=== PATIENT | female | born 1930 | race Caucasian/White ===

== ENCOUNTER 2017-01-14 19:00 | Inpatient (IN) | payer OTHER ==
[~2017-01-14] VITALS: Ht 149.8 cm; Wt 80.7 kg
--- NOTE | ~2017-01-14 | PR ---
[place], [place] PROGRESS NOTE NAME: HENRIK SYED [facility] #: [id number] UNIT #: [id number] ROOM: 310 DOCTOR: Randy RAMIREZ,MARLENE BIRTHDATE: [birth year] DOS: 01/19/2017 PSYCHIATRIC PROGRESS NOTE SUBJECTIVE: The patient seen and spoke with the staff. Per staff, the patient was screaming all night, was combative and irritable and angry, hard to redirect. The patient was in the day area in a Tg chair. She said that she is doing "good." She was not able to recall the event that happened last night, said that she was surprised to know that she was screaming. She said that she slept well and her appetite was good. She was not in any distress. She did not express any concern also. MENTAL STATUS EXAMINATION: The patient was pleasant and cooperative, described her mood as "okay." Affect, mood congruent. Thought processes with confabulation. She denied auditory or visual hallucination. No delusion or paranoia noted. She denied any suicidal ideation, intent or plan. She also denied any homicidal ideation, intent or plan. ASSESSMENT: 1. Brief psychotic disorder. 2. Rule out major depression with psychotic feature. 3. Alzheimer dementia with behavioral disturbances. PLAN: 1. Continue current medication and care. Probably need to give some time for the medication to have its full effect. 2. Continue redirection. 3. Leos milieu. MARLENE RAMIREZ MD CM:ELVER [id number] Randy RAMIREZ 01/19/17 1647 interface
--- NOTE | ~2017-01-14 | DS ---
[place], [place] DISCHARGE SUMMARY NAME: HENRIK SYED [facility] #: [id number] UNIT #: [id number] ROOM: 310 DOCTOR: HAKAN OROZCO MD BIRTHDATE: [birth year] DOS: 01/21/2017 CHIEF COMPLAINT: The patient was somnolent at initial eval and was unable to respond. HISTORY OF PRESENT ILLNESS: This is an 86-year-old white female known to me from her stay at [facility] in [place], [place]. The patient has become increasingly more agitated and aggressive there. She has been both verbally and physically aggressive toward staff and resistive to care. She has also been yelling out nonstop to the point of being extremely disruptive to the entire gracia milieu. Attempts to adjust her medications have been unsuccessful and she continues to spiral out of control, representing a significant risk of harm to self and others. She is admitted now to the U to rule out organic factors and to stabilize on medication with the ultimate plan to return to [facility] when stable. PAST MEDICAL HISTORY: Remarkable for Alzheimer dementia, gait instability, major depression, osteoarthritis and vertigo. SUMMARY OF HOSPITAL COURSE: The patient was admitted to the unit where her Aricept was discontinued and Exelon patch 4.6 mg daily was started. Her Namenda dose was increased to 10 mg b.i.d. rapidly and she was started on Depakote 250 mg twice daily and 500 mg at bedtime. The Exelon dose was rapidly titrated upwards from the 4.6 initiation dose to its target dose of 13.3 mg daily without issue. The patient did improve gradually with this, but continued to exhibit significant delusions which seemed to be at the root of her agitation and aggression. For this reason, Risperdal 0.5 mg twice daily was started. This did seem to impact positively on her symptoms and she improved dramatically with the addition of the Risperdal. She became much calmer and redirectable. She even ambulated with assistance in the hallway and was able to engage in normal conversation. Her yelling episodes decreased in both frequency and intensity and she was able to engage in meaningful conversation more readily. She had improved significantly by 01/21/2017 to return back to [place]. MENTAL STATUS AT DISCHARGE: The patient is alert and oriented to person, possibly place, although it is doubtful not to time. Mood does seem to be more euthymic. Affect is much more appropriate. There was no agitation or aggression. There was no hypomania or cyndee. There was no overt hostility noted. The patient did still have some persistent delusion, but was redirectable. Short term memory remains exceedingly poor. FINAL DIAGNOSES: Major depression, recurrent with psychotic features, also Alzheimer dementia. PLAN: All of her prescriptions have been E-scribe to . She will return to [facility] in [place], [place]. I will follow her there upon her return. [place], [place] DISCHARGE SUMMARY NAME: HENRIK SYED UNIT #: [id number] ROOM: 310 DOCTOR: HAKAN OROZCO MD BIRTHDATE: [birth year] HAKAN OROZCO MD CM:URBAN 1 [phone] HAKAN OROZCO MD 01/21/17 1022 interface
--- NOTE | ~2017-01-14 | PR ---
[place], [place] PROGRESS NOTE NAME: HENRIK SYED [facility] #: [id number] UNIT #: [id number] ROOM: 310 DOCTOR: HAKAN OROZCO MD BIRTHDATE: [birth year] DOS: 01/16/2017 CHIEF COMPLAINT: "Morning, how are you?" SUMMARY OF THE VISIT: The patient was interviewed as she sat in the group therapy room in a Tg chair. She had magazines in front of her that she was looking at. She engaged readily in conversation and did report that she is feeling better. Nurses report a significant improvement in her overall mood and there has been much less yelling out and she is more redirectable. MENTAL STATUS: She is alert and oriented to self. Unclear if she realizes she is in the hospital and she is certainly not oriented to time. Mood does seem to be strongly trending towards euthymia. Affect is more appropriate. There are no symptoms of hypomania or cyndee. There are no auditory or visual hallucinations. No delusions or paranoia noted. Short term memory is poor. PLAN: I will go ahead and increase her Exelon patch from 9.5 to 13.3 mg daily. Her vitamin B12 level is borderline therapeutic at 306, but given the fact that it is so close to being deficient. I will go ahead and augment with vitamin B12 1000 mcg IM today. We will engage in individual and gracia milieu activity, returning to the least restrictive environment when psychiatrically stable. HAKAN OROZCO MD CM:PNTRANS 0 06 HAKAN OROZCO MD 01/16/171805 interface
--- NOTE | ~2017-01-14 | PR ---
[place], [place] PROGRESS NOTE NAME: HENRIK SYED [facility] #: [id number] UNIT #: [id number] ROOM: 310 DOCTOR: Randy RAMIREZ,MARLENE BIRTHDATE: [birth year] DOS: 01/20/2017 PSYCHIATRIC PROGRESS NOTE SUBJECTIVE: The patient seen and spoke with the staff. Per staff, the patient started screaming last night, but was easily redirectable. She was paid attention 1:1 and later on she slept 6 hours, woke up in between, but no other behavioral problems or issues. The patient was pleasant, cooperative. She said that she is doing fine. She said that she does not like to sleep in the chair, but it is okay with her. She was not in any distress. She is medication compliant and denied any problems or issues. MENTAL STATUS EXAMINATION: The patient was pleasant and cooperative, described her mood as "okay." Affect, mood congruent. Thought process is with confabulation. She denied auditory or visual hallucination. No delusion or paranoia noted. She denied suicidal ideation, intent or plan. She also denied homicidal ideation, intent or plan. ASSESSMENT: 1. Major depressive disorder, recurrent with psychotic feature 2. Alzheimer dementia with behavioral disturbances. PLAN: 1. Continue current medication and care. 2. Continue redirection. 3. Leos milieu. MARLENE RAMIREZ MD CM:ELVER [id number] Randy RAMIREZ 01/20/17 1528 interface
--- NOTE | ~2017-01-14 | WRIGHTHP ---
[place], [place] PATIENT HISTORY AND PHYSICAL EXAM NAME: HENRIK SYED UNIT #: [id number] ROOM: 310 DOCTOR: HAKAN OROZCO MD BIRTHDATE: [birth year] DOS: 01/15/2017 CHIEF COMPLAINT: The patient was somnolent and unable to respond. HISTORY OF PRESENT ILLNESS: This is an 86-year-old white female known to me from her stay at [facility] in [facility]. The patient has become increasingly more agitated and aggressive. She has been both verbally and physically aggressive toward staff and very resistive to care. Additionally, she has been yelling out nonstop and she has been very disruptive to the entire gracia milieu. Attempts to adjust her medications have been unsuccessful and she continues to spiral out of control being a significant risk of harm to herself and others. She is admitted now to rule out organic factors to stabilize on medication, to engage in individual and gracia milieu activity with the ultimate plan to return back to [facility] when psychiatrically stable. PAST MEDICAL HISTORY: Remarkable for Alzheimer's dementia, gait instability, major depression, osteoarthritis and vertigo. MENTAL STATUS EXAMINATION: The patient is alert and oriented to self only. This morning, she was very somnolent. She did require p.r.n. intervention last evening receiving an Ativan between the hours of 11 and 12 o'clock. This morning, I attempted on multiple occasions to attempt to arouse her, she did open her eyes and moves little bit, but did not make any verbalizations. DIAGNOSES: Brief psychotic disorder, rule out major depression with psychotic features, also Alzheimer dementia. PLAN: I have already discontinued her Aricept in lieu of Exelon patch 4.6 mg daily. I will rapidly titrate this upward with the target dose of 13.3 mg daily in mind. This is already being augmented with Namenda 10 mg b.i.d. I have started her on Depakote 250 mg twice daily and 500 mg at bedtime in an effort to decrease her impulsivity and mood lability. We will attempt to engage in individual and gracia milieu activity with the ultimate plan to return back to [place] when stable. [place], [place] PATIENT HISTORY AND PHYSICAL EXAM NAME: HENRIK SYED UNIT #: [id number] ROOM: 310 DOCTOR: HAKAN OROZCO MD BIRTHDATE: [birth year] HAKAN OROZCO MD CM:PHYS:PATIENT HISTORY AND PHYSICAL EXAMINATION [id number] HAKAN OROZCO MD 01/15/17 1017 interface
--- NOTE | 2017-01-14 19:19 | NUR ---
PER DR OROZCO HE IS MEDICALLY CLEARING PATIENT
--- NOTE | 2017-01-14 20:12 | NUR ---
HENRIK SYED Sara a 86 year old F admitted via wheel chair from the ADMITTING as a voluntary admission. Arrived on unit at 2011. ALLERGIES: NKA. Vital signs are: -- . The client signed the following forms with stated understanding: Authorization For The Release of Medical Information, Clothing List, Consent to Voluntary Admission and Hospitalization, Consent and Release Forms/Receipt of Rights, Acknowledgement of Advance Directive Information, Behavioral Health Consent Form, and Informed Consent of Medications. Admitted under the services of [facility]. A search was conducted and hazardous articles were removed. Client was oriented to the unit. FRANCOIS BUSBY PATIENT DELFINO WHIPPLE TO SIGN PAPER WORK TOMARROW BUT GAVE CONSENT FOR ADMISSION TO [facility]
[2017-01-14 20:26] VITALS: BP 138/60
[2017-01-14] MEDS ORDERED: ASPIRIN ADULT L81 MG PO (21:10)
[2017-01-14] MEDS ORDERED: FIBER LAX625 MG PO (21:11)
[2017-01-14] MEDS ORDERED: VITAMIN D22000 UNIT PO (21:11)
[2017-01-14] MEDS ORDERED: ARICEPT5 M1 PO (21:12)
[2017-01-14] MEDS ORDERED: ZANTAC 150150 MG PO (21:13)
[2017-01-14] MEDS ORDERED: FISH OIL 1,2001 EACH PO (21:14)
[2017-01-14] MEDS ORDERED: NAMENDA10 MG PO (21:16)
[2017-01-14] MEDS ORDERED: VISTARIL25 MG PO ×2 (21:17→21:30)
[2017-01-14] MEDS ORDERED: COLACE100 MG PO ×2 (21:18→21:37)
[2017-01-14] MEDS ORDERED: SENNA-S TABLET1 EACH PO (21:19)
[2017-01-14] MEDS ORDERED: GEODON20 MG PO (21:21)
[2017-01-14] MEDS ORDERED: VISTARIL50 MG PO ×2 (21:22→21:33)
[2017-01-14] MEDS ORDERED: MECLIZINE HCL12.5 MG PO (21:23)
[2017-01-14] MEDS ORDERED: TYLENOL325 MG PO (21:23)
[2017-01-14] MEDS ORDERED: ALLEGRA-D 24 H1 EACH PO (21:24)
[2017-01-14] MEDS ORDERED: MUCINEX1200 M1 PO (21:27)
[2017-01-14] MEDS ORDERED: ZOFRAN ODT4 MG PO (21:28)
[2017-01-14] MEDS ORDERED: IMODIUM A-D2 M2 PO (21:29)
[2017-01-14] MEDS ORDERED: DULCOLAX10 M1 R (21:34)
[2017-01-14] MEDS ORDERED: MILK OF MA400 MG/51 PO (21:35)
[2017-01-14] MEDS ORDERED: FLEET ENEMA 13133 ML R (21:36)
[2017-01-14] MEDS ORDERED: ARTHRITIS PAIN650 M3 PO (21:38)
--- NOTE | 2017-01-14 22:03 | NUR ---
DR. EAGLE CALLED AND AWARE OF ADMISSION. PATIENT PLACED UNDER DR. TESSY AGUILERA
[2017-01-14 22:19] VITALS: BP 138/60
--- NOTE | 2017-01-14 22:29 | NUR ---
DR. CASTRO ON UNIT TO SEE PATIENT
--- NOTE | 2017-01-15 00:20 | NUR ---
PATIENT WITH ATTEMPT TO GET OUT OF WHEELCHAIR WITHOUT ASSISTANCE AND STRIKING OUT AT NURSING STAFF. MEDICATED WITH ATIVAN 1MG PO. FLUIDS PROVIDED. ATIVAN WITH EFFECTIVE RESULTS AT THIS TIME
--- NOTE | 2017-01-15 03:56 | NUR ---
24 HR chart check completed.
--- NOTE | 2017-01-15 04:53 | NUR ---
24 HR chart check completed.
--- NOTE | 2017-01-15 06:25 | NUR ---
PATIENT TOILETED AND URINE SPECIMEN COLLECTED. PATIENT INCONTINENT OF BLADDER PRIOR TO TOILETING. URINE OUTPUT OF 150ML CLOUDY YELLOW URINE WITH STRONG ODOR
--- NOTE | 2017-01-15 07:03 | NUR ---
Q 15 MINUTE SAFETY CHECKS MAINTAINED. SLEPT 3-4 HOURS INTERMITTENTLY THROUGHOUT SHIFT
[2017-01-15 07:18] LABS: BASO % 0.6 % (0.0-1.0); EOS # 0.6 10*3/uL (0.0-0.4); HEMATOCRIT 39.3 % (37.0-47.0); HEMOGLOBIN 12.8 g/dl (12.0-16.0); LYMPH # 1.7 10*3/uL (1.3-4.4); LYMPH % 25.2 % (27.0-41.0); MEAN CELL VOLUME 90.1 fl (81.0-99.0); MEAN CORPUSCULAR HGB 29.4 pg (27.0-31.0); MEAN CORPUSCULAR HGB CONC 32.6 g/dl (33.0-37.0); MEAN PLATELET VOLUME 12.6 fl (9.6-12.3); MONO # 0.7 10*3/uL (0.1-1.0); MONO % 10.2 % (3.0-9.0); NEUT # 3.8 10*3/uL (2.3-7.9); NEUT % 54.7 % (47.0-73.0); PLATELET COUNT AUTOMATED 196 10*3/uL (130-400); RED BLOOD COUNT 4.36 10*6/uL (4.10-5.10); RED CELL DISTRI WIDTH 14.1 % (0-14.5); WHITE BLOOD COUNT 6.9 10*3/uL (4.8-10.8)
[2017-01-15 07:47] LABS: ALBUMIN 2.9 gm/dl (3.1-4.5); CREATININE 1.28 mg/dL (0.55-1.02); POTASSIUM 3.9 mmol/L (3.5-5.1); TOTAL PROTEIN 7.3 gm/dL (6.4-8.2)
[2017-01-15 07:56] LABS: THYROID STIM HORMONE (HS) 2.2 uIU/ml (0.358-4.75)
[2017-01-15 08:07] LABS: BILIRUBIN NEGATIVE (NEGATIVE); BLOOD NEGATIVE (NEGATIVE); CLARITY CLOUDY (CLEAR); COLOR YELLOW (YELLOW); GLUCOSE NEGATIVE (NEGATIVE); KETONE TRACE (NEGATIVE); LEUKO ESTERASE 1+ (NEGATIVE); NITRITE NEGATIVE (NEGATIVE); PH 5.5 (5.0-9.0); UROBILINOGEN 0.2 E.U./dl (0.2-1.0)
[2017-01-15 08:10] VITALS: BP 147/68
[2017-01-15 09:10] LABS: VITAMIN D, 25-HYDROXY 41.3 ng/mL (30-100)
[2017-01-15 09:55] LABS: BACTERIA 4+; EPITHELIAL CELLS 15-20; WBC 31-40 wbc/hpf (0-5)
--- NOTE | 2017-01-15 10:21 | NUR ---
PHYSICAL THERAPY Physical Therapy Evaluation completed this date. See eval document for complete details. Will begin PT intervention to address the impairments of muscle weakness, decreased functional mobility I, and difficulty ambulating. Recommend d/c back to [facility] [place] [address] based on chart review and PT eval. Adrienne Loyd, PT
--- NOTE | 2017-01-15 10:25 | NUR ---
SCARLETT FROM [facility] CALLED IN STATING THAT THEY RECEIVED A REPORT THAT THE TRANSPORTING AMBULETTE ZIP TIED THE PT TO HER WHEELCHAIR. FACILITY REQUESTING WE EXAMINE PT WRISTS AND ANKLES FOR ANY AREAS OF CONCERN. THIS NURSE EXAMINED PT WRISTS AND ANKLES, NO REDNESS OR AREAS OF CONCERN NOTED. CALL PLACED TO FACILTY AND INFORMATION GIVEN. [facility] DIRECTOR,HARRY, NOTIFIED.
--- NOTE | 2017-01-15 11:03 | NUR ---
Exercise/Games This group will help patient learn deep breathing to calm herself and appropriate interaction with others Patient at first did not attend group due to her screaming,patient then calmed herself and came to group. Patient wanted to plat yatzee with others but within 5 mins fell asleep and couldnt keep her awake
--- NOTE | 2017-01-15 11:11 | NUR ---
OT EVALUATION COMPLETED AT BS. OT AT MODERATE COMPLEXITY BASED ON EVALUATION AND CHART REVIEW
--- NOTE | 2017-01-15 11:30 | NUR ---
DR. MARMOLEJO ON UNIT TO SEE PATIENT, UPDATED ON LABS AND UA RESULT.
--- NOTE | 2017-01-15 12:42 | NUR ---
SW MEET WITH DTR AND HAD ADMISSION PAPERWORK SIGNED.
--- NOTE | 2017-01-15 15:39 | NUR ---
Halloween,Color and Talk Patient was brought in to [facility] to join group but promptly fell asleep. Attempted to wake patient several times but patient just fell back to sleep each attempt
--- NOTE | 2017-01-15 19:22 | NUR ---
ZXDR. PADILLA NOTIFIED OF UA RESULT. NEW ORDER FOR MONURIL 3 GM PO NOW.
[2017-01-15 19:50] VITALS: BP 117/56
--- NOTE | 2017-01-15 21:55 | NUR ---
ATE 100% OF SNACK. MEDICATION COMPLEANT. LESS YELLING OUTBURST THIS EVENING. POSITIVE SIGNS OF VISUAL HALLUCINATIONS NOTED. SEEING BABYS ON THE FLOOR AND KIDS IN HALLWAY. REDIRECTION IS SHORT LIVED. NO COMBATIVNESS NOTED. WILL CONTINUE TO MONITOR
--- NOTE | 2017-01-16 03:21 | NUR ---
JACKIET AWAKE AND CALLING FOR "MOMMA" MILIEU SITTING WITH CLIENT FOR EMOTIONAL SUPPORT.
--- NOTE | 2017-01-16 03:22 | NUR ---
24 HR chart check completed.
--- NOTE | 2017-01-16 05:35 | NUR ---
HAS SLEPT WELL THIS SHIFT. ONLY AWAKENED WHEN SHE WAS WET AND NEEDED CHANGED. REPOSITIONED IN CHAIR AND SHE RETURNED TO SLEEP
[2017-01-16 07:39] VITALS: BP 132/64
--- NOTE | 2017-01-16 07:51 | NUR ---
PHYSICAL THERAPY Pt seen this AM 1:1 for her therapy session. Pt having muscle weakness, decreased functional mobility. Pt was sleeping in her gerichair at this time. With much verbal cueing transfer sit/stand, standing balance MAX A X 1, with Pt falling backwards at all times with repeat cues to lean forward, X 2 standing balance to tolerance MAX A X 1. Ami would not take a step at this time, dementia, vertigo. Pt back in her gerichair, tray up. KATHY HASSAN HUMAN FACTORS ERGONOMIST.
--- NOTE | 2017-01-16 08:30 | NUR ---
TREATMENT TEAM WAS HELD WITH THE FOLLOWING: DR. OROZCO, MEDICAL STUDENT, DIRECTOR [employer], RN, AT AND SW. DR. OROZCO WAS INTERESTED IN A [facility] ROOM FOR PT.
--- NOTE | 2017-01-16 09:23 | NUR ---
PER COURTNEY AT [facility], IP LUIS 3 DAYS. NEXT REVIEW DUE TODAY. REQUESTS COPY OF MEDICARE RIGHTS.
--- NOTE | 2017-01-16 10:09 | NUR ---
SHASHA SPOKE WITH ELLE GARCIA. PT APPROVED JACK TODAY WITH REVIEW TODAY FROM INSURANCE. ELLE NEEDS MEDICARE RIGHTS SIGNED FOR INSURANCE.
--- NOTE | 2017-01-16 10:20 | NUR ---
PATIENT IS ALERT TO PERSON AND HANDS ON CARE, RESPIRATIONS ARE EASY, NON LABORED ON ROOM AIR. MOOD IS HOPELESS/HELPLESS WITH SOME IMPROVEMENT. ABLE TO CONVERSATE WITH NURSING STAFF. CALM DEMEANOR, NO OUTBURST NOTED FOR NOW, PATIENT IN ACTIVITY GROUP AT THIS TIME. DENIES ANY HALLUCINATIONS, DELUSIONS, HI/SI OR PAIN. 1-2 PERSON ASSIST WITH ACITIVITIES OF DAILY LIVING. INCONTINENT OF BOWEL AND BLADDER. GOOD MEAL INTAKE WITH VERBAL CUEING TO EAT MEAL, ADEQUATE FLUIDS. Q 15 MINUTE SAFETY CHECKS AND MEDICATION COMPLIANT.
--- NOTE | 2017-01-16 10:45 | NUR ---
DUGLAS KRISHNA UPDATED ON UA CULTURE RESULTS
--- NOTE | 2017-01-16 10:52 | NUR ---
Trivia & Goal settings Patient attended group with limited participation due to lethergy. Patient did set goal of getting healthy
--- NOTE | 2017-01-16 10:56 | NUR ---
SHASHA CONFIRMED WITH WATERPROOFING SUPERVISOR THAT SHE FAXED MEDICARE RIGHTS TO [facility] IN [place].
--- NOTE | 2017-01-16 11:58 | NUR ---
Spoke with Guardiantonietta bolanos, she will be in tomorrow or Saturday to visit and sign any other paperwork that may need to be singned.
--- NOTE | 2017-01-16 15:40 | NUR ---
Positive Traits Patient asleep in her chair. When i asked if she was going to join group or sleep all day patient stated "I was born sleeping," and went back to sleep. Patient did not participate in activity group.
[2017-01-16 20:00] VITALS: BP 134/53
--- NOTE | 2017-01-17 03:30 | NUR ---
24 HOUR CHART CHECK COMPLETED.
--- NOTE | 2017-01-17 05:07 | NUR ---
PER COURTNEY AT [facility], TOTAL OF 8 DAYS HAVE BEEN APPROVED. LCD 01/21 WITH REVIEW DUE 01/21.
--- NOTE | 2017-01-17 05:46 | NUR ---
PATIENT OBSERVED ON Q 15 MIN CHECKS TO HAVE SLEPT APPROX 4 HOURS INTERRUPTED WITH MULTIPLE AWAKENINGS TO YELL OUT FOR "MOMMY" OR TO REQUEST VARIOUS WANTS AND DEMANDS FROM STAFF, "ICE CREAM", "CHIPS", "GOWN FROM HOME", "SOCKS OFF", "RUB MY FEET". PATIENT NOT RECEPTIVE TO EDUCATION OR TO REDIRECTION FROM STAFF STATES "ILL JUST YELL IF I DONT GET MY WAY". NO AGGRESSIVE BEHAVIOR EXHIBITED. PATIENT ALSO NOTED TO RESPOND TO INTERNAL STIMULI, TALKS TO SELF WHEN ALONE STATING "WHAT ARE YOU GOING TO EAT, YOU GOING TO EAT SOON". MEDICATION COMPLIANT WITHOUT DIFFICULTY. NO PHYSICAL COMPLAINTS VOICED. PATIENT SITTING UP IN JAZMINE CHAIR WITH EYES CLOSED. RESPIRATIONS EASY AND REGULAR. NO SIGNS OR SYMPTOMS OF DISTRESS. REFER TO [facility] FLOWSHEET FOR SPECIFIC MONITORING.
--- NOTE | 2017-01-17 08:15 | NUR ---
PHYSICAL THERAPY Ami was seen this AM X 2, and i could not talk Pt into her therapy, or even just up and stand. Ami not wanting any therapy and was not going to get up. KATHY HASSAN POWERTRAIN CONTROL SYSTEMS ENGINEER.
[2017-01-17 08:16] VITALS: BP 156/62
--- NOTE | 2017-01-17 10:19 | NUR ---
SW RECEIVED VM FROM [facility] REPORTING THAT PT WAS APPROVED BY INSURANCE UNTIL 01/21 WITH REVIEW THAT DAY. BOARD UPDATED.
--- NOTE | 2017-01-17 11:30 | NUR ---
PT IS ALERT AND ORIENTED TO PERSON AND APPROXIMATE TO PLACE, CONFUSED TO TIME AND SITUATION. ST/LT MEMORY DEFICITS NOTED. 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 MOOD IS DEPRESSED, STABLE, AFFECT IS FLAT. SPEECH IS WNL AND COHERENT, ABLE TO MAKE NEEDS KNOWN WITHOUT DIFFICULTY. PT DENIES SI/HI. PT DENIES HALLUCINATIONS, NO RESPONSE TO INTERNAL STIMULI NOTED. MEDICATION COMPLIANT WITHOUT DIFFICULTY. PT SHOWERED THIS AM WITH ASSISTANCE OF STAFF X2, CONTINENT OF BOWEL AND BLADDER WITH EPISODES OF STRESS INCONTINENCE. DISPLAYS GOOD APPETITE WITH ADEQUATE FLUID INTAKE. NO DISTRESS NOTED. Q15 MIN MONITORING CONTINUES, REFER TO [facility] FLOWSHEET FOR SPECIFIC MONITORING.
--- NOTE | 2017-01-17 11:33 | NUR ---
Morning exercises/ "strawberry" cornhole and remanissing group Patient attended group this date with good and appropriate behavior. Patient shows increased particpation within group today apposed to previous groups. Patient able to state favorite items and previous jobs during remanissing group with having to be redirected towards tasks.
--- NOTE | 2017-01-17 12:39 | NUR ---
DUGLAS KRISHNA CNP FROM HOSPITALIST GROUP ON UNIT TO SEE PT AT THIS TIME. UPDATE GIVEN. STATES OK TO STRAIGHT CATH IF UNABLE TO OBTAIN URINALYSIS VIA CLEAN CATCH. MADE AWARE OF RED EXCORIATED AREAS UNDER BILATERAL BREASTS.
--- NOTE | 2017-01-17 12:43 | NUR ---
URINALYSIS OBTAINED VIA CLEAN CATCH AT THIS TIME, LABELED AND SENT TO LAB.
[2017-01-17 12:59] LABS: BILIRUBIN NEGATIVE (NEGATIVE); BLOOD TRACE-INTACT (NEGATIVE); CLARITY SL CLOUDY (CLEAR); COLOR YELLOW (YELLOW); GLUCOSE NEGATIVE (NEGATIVE); KETONE TRACE (NEGATIVE); LEUKO ESTERASE TRACE (NEGATIVE); NITRITE NEGATIVE (NEGATIVE); UROBILINOGEN 0.2 E.U./dl (0.2-1.0)
[2017-01-17 13:17] LABS: BACTERIA 2+; WBC 16-20 wbc/hpf (0-5)
--- NOTE | 2017-01-17 14:09 | NUR ---
Treatment Team was held with the folowing present: Dr. Echols, Medical Student, Resident, CONTINUOUS IMPROVEMENT MANAGER, RNs, Ats, SW. Pt now having auditry halluciantions hilda Echols started Risperdal. Pending discharge for next week.
--- NOTE | 2017-01-17 14:57 | NUR ---
Inspirational craft group Patient attended and appropriately participated in group with peers. Patient able to state items they find inspiring or that makes them feel happy. Patient was awake throughout entire group.
[2017-01-17 19:39] VITALS: BP 119/64
--- NOTE | 2017-01-18 04:23 | NUR ---
24 HOUR CHART CHECK COMPLETED.
--- NOTE | 2017-01-18 05:37 | NUR ---
PATIENT OBSERVED ON Q 15 MIN CHECKS TO HAVE SLEPT >6 HOURS WITH X1 BRIEF AWAKENINGS TO YELL OUT. EASILY REDIRECTED BY STAFF. REFUSED TO GO LAY DOWN IN BED STATING THAT SHE WANTED TO STAY "IN MY CHAIR". PATIENT IN JAZMINE CHAIR NEAR NURSES STATION DURING SHIFT FOR SAFETY, REPOSTIONED FREQUENTLY FOR COMFORT AND PRESSURE RELIEF.ABLE TO MAKE NEEDS KNOWN WITHOUT DIFFICULTY. TOILETED WITH THE ASSISTANCE X2. NO HALLUCINATIONS OR DELUSIONS NOTED THIS SHIFT. MEDICATION COMPLIANT WITH OUT DIFFICULTY. NO PHYSICAL COMPLAINTS VOICED. PATIENT CURRENTLY LAYING BACK IN CHAIR WITH EYES CLOSED. RESPIRATIONS EASY AND REGULAR, NO SIGNS OR SYMPTOMS OF DISTRESS NOTED. REFER TO [facility] FLOWSHEET FOR SPECIFIC MONITORING.
--- NOTE | 2017-01-18 08:09 | NUR ---
PHYSICAL THERAPY Mrs Tong was seen this AM and for some reason did much better today. Pt said that she would try. Transfer sit/stand MAX A X 1, standing balance with wheeled walker MOD A X 1. Gait 15' X 1, MOD SCHOOL PSYCHOLOGY SPECIALIST X 1, and verbal cueing for gait, walker, balance safety followed by sitting rest. Then another gait this time 50' X 1, MOD SCHOOL PSYCHOLOGY SPECIALIST X 1, cueing to stand tall, lean forward. Pt back up in the day room in her gerichair. KATHY HASSAN PTA.
--- NOTE | 2017-01-18 08:17 | NUR ---
TREATMENT TEAM WAS HELD WITH THE FOLLOWING : DR. OROZCO, RESIDENT, RNs, atS, SW. DR. OROZCO REQUESTED DR. WRIGHT CONSULT. DR. OROZCO HAD AN APPROPRIATE COVERSATION WITH PT. PENDING DISCHARGE FOR SATURDAY.
[2017-01-18 09:43] VITALS: BP 149/61
--- NOTE | 2017-01-18 11:08 | NUR ---
Exercise/Game Patient was in attendence but did not participate. Patient was awake at the very begining but after patient recieved her medication soon fell asleep
--- NOTE | 2017-01-18 12:00 | NUR ---
SW RECEIVED CALL FROM Vanessa raya THAT PT 'S INSURANCE CM WANTS A CALL WHEN DISCHARGED Tee [phone] [phone]
--- NOTE | 2017-01-18 14:19 | NUR ---
PT IS ALERT AND ORIENTED TO PERSON ONLY, CONFUSED TO OTHER ASPECTS. ST/LT MEMORY DEFICITS NOTED. RESPIRATIONS EASY ON ROOM AIR. MOOD IS STABLE, AFFECT IS FLAT. SPEECH IS SOFT BUT COHERENT, ABLE TO VERBALIZE NEEDS WITHOUT DIFFICULTY. PT DENIES SI/HI. PT DENIES HALLUCINATIONS, NO RESPONSE TO INTERNAL STIMULI NOTED. NO PARANOIA/DELUSIONS NOTED. MEDICATION COMPLIANT WITHOUT DIFFICULTY. PT IS RELIANT ON STAFF FOR ASSISTANCE WITH ADLS, CONTINENT OF BOWEL AND BLADDER, DISPLAYS GOOD APPETITE WITH ADEQUATE FLUID INTAKE, FEEDS SELF WITH SET UP ASSIST. PT'S TREATMENT PLAN TARGETS AGGRESSIVE BEHAVIORS D/T PT BEING COMBATIVE AT SENIOR LIVING, PT HAS NOT DISPLAYED ANY AGGRESSIVE OR COMBATIVE BEHAVIOR THIS SHIFT. PT HAS BEEN CALM AND COOPERATIVE. STAFF WILL CONTINUE CURRENT TX PLAN: ASSIST PT IN DEVELOPING NEW COPING SKILLS, MONITOR AND HELP PT IDENTIFY TRIGGERS THAT CAUSE AGGRESSIVE BEHAVIORS, ENCOURAGE ATTENDANCE AND PARTICIPATION IN GROUPS AND ACTIVITIES, ENCOURAGE RESTFUL SLEEP, ENCOURAGE MEDICATION COMPLIANCE AND MAINTAIN FALL RISK PRECAUTIONS. ALARMS ACTIVE AND AUDIBLE, PT REMINDED TO ASK FOR ASSISTANCE BEFORE ATTEMPTING TO TRANSFER OR AMBULATE. PT VERBALIZED UNDERSTANDING. Q15 MIN SAFETY CHECKS MAINTAINED, REFER TO [facility] FLOWSHEET FOR SPECIFIC MONITORING.
--- NOTE | 2017-01-18 15:22 | NUR ---
Witch Fishing/Reminiscing Patient was in attendence for group but there was almost no participation. Patient kept falling asleep. Attempted to keep patient awake but at one point she stated "Just let me sleep"
--- NOTE | 2017-01-18 18:13 | NUR ---
SHIFT CHART CHECK COMPLETED.
[2017-01-18 19:44] VITALS: BP 124/60
--- NOTE | 2017-01-19 02:56 | NUR ---
PT ORIENTED TO NAME ONLY. PT HAS BEEN PLEASANT AND MEDICATION COMPLIANT AT THIS POINT OF DOCUMENTATION. NO AGITATION/AGGRESSION NOTED. PT REPORTS HAVING "AN OK DAY." ENCOURAGED VERBALIZATION OF EMOTIONS. PT REMINISCED ABOUT HER TIME A NURSES AID WITH THIS NURSE. NURSE REASSURED PT THAT SHE WAS IN A SAFE ENVIRONMENT AND PROVIDED REORIENTATION WHEN NECESSARY. REFER TO FLOWSHEET FOR ADDITIONAL INFO.
--- NOTE | 2017-01-19 03:08 | NUR ---
24HR CHART CHECK COMPLETE
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
[2017-01-19 08:00] VITALS: BP 134/64
--- NOTE | 2017-01-19 11:27 | NUR ---
DR. MAO ON UNIT TO SEE PATIENT.
--- NOTE | 2017-01-19 17:04 | NUR ---
PATIENT IS ALERT AND ORIENT TO PERSON ONLY WITH CONFUSION, MEMORY DIFICITS NOTED. MOOD IS LABILE AT TIMES, 1:1 AND REDIRCTION, TOILETING NEEDS RENDERED. DENIES ANY HALLUCINATIONS, DELUSIONS, HI/SI OR PAIN. INTERACTIVE WITH NURSING STAFF. UP IN JAZMINE CHAIR WITH VERBAL CUEING DURING MEALS. PATIENT IS DEPENDANT ON STAFF FOR ACTIVITIES OF DAILY LIVING. GOOD MEAL INTAKES WITH ADEQUATE FLUIDS, INFCONTINENT OF BOWEL AND BLADDER. UNABLE TO GIVE MORNING MEDICATIONS DUE TO SLEEPING. COMPLIANT WITH AFTERNOON MEDICATIONS. Q 15 MINUTE SAFETY CHECKS MAINTAINED.
--- NOTE | 2017-01-19 17:10 | NUR ---
24 HR chart check completed.
[2017-01-19 19:46] VITALS: BP 130/62
--- NOTE | 2017-01-19 22:34 | NUR ---
24HR CHART CHECKS COMPLETE
--- NOTE | 2017-01-19 23:45 | NUR ---
PT ORIENTED TO NAME ONLY. PT LETHARGIC WITH FLAT AFFECT. MEDICATION COMPLIANT. NURSE ENCOURAGED PT TO VERBALIZE EMOTIONS, REASURRED HER THAT SHE WAS IN A SAFE ENVIRONMENT, PROVIDED REALITY TESTING/REOIRENTATION NEEDED, AND ENCOURAGED REMINICING ABOUT HER PAST EMPLOYMENT. PT WAS NOT RECEPTIVE TO CONVERSATION TONIGHT AND WISHED TO REST. CONTINUE TO MONITOR FOR CHANGES IN BEHAVIOR. REFER TO FLOWSHEET FOR ADDITIONAL INFO.
--- NOTE | 2017-01-20 06:18 | NUR ---
PT SLEPT >6HRS WITH 3 INTERRUPTIONS.
[2017-01-20 07:51] VITALS: BP 131/81
--- NOTE | 2017-01-20 09:09 | NUR ---
DR. RAMIREZ HERE TO SEE PT AT THIS TIME, UPDATE GIVEN.
--- NOTE | 2017-01-20 11:35 | NUR ---
PT IS ALERT AND ORIENTD TO PERSON ONLY, CONFUSED IN OTHER ASPECTS. ST/LT MEMORY DEFICITS NOTED. RESPIRATIONS EASY ON ROM AIR. MOOD IS LABILE, AFFECT IS FLAT. PT YELLS OUT AND SCREAMS AT TIMES, HAS BEEN EASILY REDIRECTED BY STAFF THIS SHIFT. SPEECH IS SOFT BUT COHERENT, ABLE TO VERBALIZE NEEDS WITHOUT DIFFICULTY. PT DENIES SI/HI. PT DENIES HALLUCINATIONS, NO RESPONSE TO INTERNAL STIMULI NOTED. NO PARANOIA/DELUSIONS NOTED. MEDICATION COMPLIANT THIS AM WITHOUT DIFICULTY. PT IS RELIANT ON STAFF FOR ASSISTANCE WITH ADLS AND TOLIETING, CONTINENT OF BOWEL AND BLADDER WITH OCCASIONAL EPISODES OF STRESS INCONTINENCE. HYGIENE CARE PROVIDED. PT DISPLAYS GOOD APPETITE WITH ADEQUATE FLUID INTAKE, ABLE TO FEED SELF WITH SET UP ASSIST. PT'S TREATMENT PLAN TARGETS AGGRESSIVE BEHAVIORS D/T PT BEING COMBATIVE AT THE [facility], PT HAS NOT DISPLAYED ANY AGGRESSIVE OR COMBATIVE BEHAVIOR THIS SHIFT. PT HAS YELLED OUT BUT HAS BEEN EASILY REDIRECTED. STAFF WILL CONTINUE CURRENT TX PLAN: ASSIST PT IN DEVELOPING NEW COPING SKILLS, MONITOR AND HELP PT IDENTIFY TRIGGERS THAT CAUSE AGGRESSIVE BEHAVIORS, ENCOURAGE ATTENDANCE AND PARTICIPATION IN GROUPS AND ACTIVITIES, ENCOURAGE RESTFUL SLEEP, ENCOURAGE MEDICATION COMPLIANCE AND MAINTAIN FALL RISK PRECAUTIONS. ALARMS ACTIVE AND AUDIBLE. PT REMINDED TO ASK FOR ASSISTANCE BEFORE ATTMEPTING TO TRANSFER OR AMBULATE. Q15 MIN SAFETY CHECKS MAINTAINED, REFER TO [facility] FLOWSHEET FOR SPECIFIC MONITORING.
--- NOTE | 2017-01-20 17:18 | NUR ---
SHIFT CHART CHECK COMPLETED.
[2017-01-20 20:08] VITALS: BP 120/52
--- NOTE | 2017-01-20 22:00 | NUR ---
PATIENT YELLING OUT IN DINING AREA. THIS NURSE TALKED TO PATIENT AND PATIENT ABLE TO CALM DOWN. MEDICATION COMPLIANT. VOICES NO COMPLAINTS OF PAIN OR DISCOMFORT AT THIS TIME
--- NOTE | 2017-01-21 01:31 | NUR ---
PATIENT TEARFUL AT THIS TIME. PATIENT STATING THAT SHE IS ALL ALONE AND NO NONE LOVES HER. THIS NURSE LET PATIENT KNOW THAT HER FAMILY IS THINKING OF HER AND THAT HER DAUGHTER, JOJO CALLED AND SPOKE WITH NURSE ON PRIOR SHIFT TO GET AN UPDATE. PATIENT ABLE TO CALM DOWN AND REST IN CHAIR
--- NOTE | 2017-01-21 05:36 | NUR ---
PATIENT INTERMITTENTLY YELLING OUT AT TIMES. THIS NURSE SAT WITH PATIENT 1:1 AND PATIENT ABLE TALK WITH THIS CALMLY BUT WITH FLIGHT OF IDEAS. PATIENT SHOWERED. INCONTINENT OF BLADDER. NO AGGRESSIVE BEHAVIOR AT THIS TIME
--- NOTE | 2017-01-21 05:57 | NUR ---
24 HR chart check completed.
--- NOTE | 2017-01-21 06:35 | NUR ---
Q 15 MINUTE SAFETY CHECKS MAINTAINED. SLEPT 2-3 HOURS INTERMITTENTLY THROUGHOUT SHIFT
[2017-01-21 08:05] VITALS: BP 150/60
--- NOTE | 2017-01-21 08:15 | NUR ---
TREATMENT TEAM WAS HELD [place] FOLLOWING: DR. OROZCO, LUMBER PILER, RN, ATs, SWs. DR. OROZCO STATED THAT PT WAS RADY TO GO. SW WILL CHECK WITH PAULA TO MAKE SURE THAT PT CAN LEAVE TODAY INSTEAD OF TOMORROW.
[2017-01-21] MEDS ORDERED: DIVALPROEX SOD500 MG PO (08:57)
[2017-01-21] MEDS ORDERED: DIVALPROEX SOD250 MG PO (08:57)
[2017-01-21] MEDS ORDERED: RISPERIDONE0.5 MG PO (08:57)
[2017-01-21] MEDS ORDERED: MEMANTINE HCL10 MG PO (08:57)
[2017-01-21] MEDS ORDERED: EXELON13.3 MG/21 T (08:57)
--- NOTE | 2017-01-21 09:17 | NUR ---
PHYSICAL THERAPY Ami seen this AM 1:1 for her therapy and said that she would go. Pt was up in the day room. Wheeled Pt out into ther laguna. Sit/stand with much cueing with MAX A X 1, up on wheeled walker with cues to lean on her wheeled walker for balance safety and not to fall backwards. Then gait with W/W 50' X 1, MOD/MAX A X 1, with much cueing for balance turns and just gait safety, Pt having a sitting rest at this time. Followed by another sit/stand standing balance. Gait 43' this second time and was tired and wanting to quit. Pt wheeled back into the day room for her breakfast. K[employer] SAL[employer] REPRESENTATIVE.
--- NOTE | 2017-01-21 10:33 | NUR ---
DR. SIERRA ON UNIT TO SEE PATIENT AND INFORMED OF PATIENT BEING DISCHARGED TODAY.
--- NOTE | 2017-01-21 11:19 | NUR ---
BECKY spoke with Johnson Robles to notify of pending discharge. Johnson is o.k. with Pt returning and requested discharge orders be faxed prior to Pt coming. Becky will send update and request Nurse send discharge orders when completed.
--- NOTE | 2017-01-21 11:20 | NUR ---
Music Therapy/Reminisce/Trivia Patient was in attendence for group but would not wake up to participate.
--- NOTE | 2017-01-21 11:24 | NUR ---
SHASHA scheduled transportation with [facility] for 1pm for Pt to return to [facility] in [place].
--- NOTE | 2017-01-21 11:27 | NUR ---
SHASHA notified Dtr/[facility] that Pt will be returning to [facility] at 1p.m. today. Dtr was happy to here this and stated that everyne was wonderful in taking care of Pt. SW will mail discharge papewrwork to her due to her being out of state with friend for surgery with satisification survey.
--- NOTE | 2017-01-21 12:08 | NUR ---
NURSE TO NURSE GIVEN TO MALENA AT [facility].
--- NOTE | 2017-01-21 12:30 | NUR ---
SW COMPLETED AMBULANCE FORM FOR [facility].
--- NOTE | 2017-01-21 12:47 | NUR ---
SHASHA COPIED INFORMATION FOR FACILITY AND [facility]. DISCHARGE MEDICATIONS AND ORDERS WERE FAXED TO [facility].
--- NOTE | 2017-01-21 13:07 | NUR ---
PATIENT READY FOR DISCHARGE, [facility] HERE, 2 PERSON ASSIST HERE FOR PATIENT. ALL BELONGINGS AND DISCHARGE INSTRUCTIONS SENT WITH PATIENT. PATIENT DISCHARGED AT THIS TIME.
--- NOTE | 2017-01-21 15:02 | NUR ---
PT WAS DISCHARGED BACK TO [facility], [place]. COPIES OF DISCHARGE PAPERWORK WAS SENT WITH PT. PT TRANSPORTED BY [facility]. PT WILL FOLLO WUP WITH DR. OROZCO AND MEDICAL AT FACILITY 1X A MONTH OR PRN.
--- NOTE | 2017-01-22 07:45 | NUR ---
PHYSICAL THERAPY CO-SIGN I approve of the Phyical Therapy notes written above. ERIN TREVIZO PT
== END 2017-01-21 13:07 | disposition home or self-care (01) | DRG 885 ==
LOC: 3N 19:00
PROVIDERS: Registered Nurse; ADMIT Psychiatry & Neurology Psychiatry
DX: F33.3 Major depressive disorder, recurrent, severe with psychotic symptoms (principal); E44.0 Moderate protein-calorie malnutrition; G30.9 Alzheimer's disease, unspecified; F02.81 Dementia in other diseases classified elsewhere, unspecified severity, with behavioral disturbance; N39.0 Urinary tract infection, site not specified; F23 Brief psychotic disorder; M19.90 Unspecified osteoarthritis, unspecified site; G47.00 Insomnia, unspecified; N18.3 Chronic kidney disease, stage 3 (moderate); Z68.35 Body mass index [BMI] 35.0-35.9, adult; R29.6 Repeated falls; Z96.653 Presence of artificial knee joint, bilateral; Z90.13 Acquired absence of bilateral breasts and nipples; Z82.3 Family history of stroke; Z79.82 Long term (current) use of aspirin; Z79.899 Other long term (current) drug therapy